=== PATIENT | female | born 1965 | race Caucasian/White ===

== ENCOUNTER 2018-11-01 11:17 | Emergency (ER) | payer OTHER ==
[2018-11-01 11:46] VITALS: BP 113/53
--- NOTE | 2018-11-01 12:06 | ED Physician Documentation ---
General Adult - HISTORIAN Historian: patient - HPI Stated Complaint: right thumb pain Chief Complaint: General Adult Onset: days ago Timing: worse since Severity: moderate Further Comments: yes (Pt is a 53 yo female with R thumb pain that has been worsening over the past 3 days. Pt has had no acute injury. Pt feels pain at the base of the thumb and at the proximal metacarpal/carpal joint. Pt is unable to take NSAIDS.) - ROS CONST: no problems EYES/ENT: none CVS/RESP: none GI/: none MS/SKIN/LYMPH: other (R thumb pain) - PAST HX Past History: other (anxiety/depression) Surgeries/Procedures: Allergies/Adverse Reactions: Allergies Allergy/AdvReac Type Severity Reaction Status Date / Time Iodinated Contrast- Oral and Allergy Verified 11/01/18 11:38 IV Dye general anesthia Allergy Unknown Uncoded 11/01/18 11:38 Home Medications: Ambulatory Orders Medication Instructions Recorded Bupropion HCl [Wellbutrin Xl] 450 mg PO DAILY 08/21/18 Duloxetine HCl 90 mg PO DAILY 08/21/18 Furosemide [Lasix] 20 mg PO DAILY 08/21/18 Hydrochlorothiazide 25 mg PO DAILY 08/21/18 Loratadine 10 mg PO DAILY 08/21/18 Lurasidone HCl [Latuda] 60 mg PO DAILY 08/21/18 Tiotropium Br/Olodaterol HCl 1 puff IH DAILY 08/21/18 [Stiolto Respimat Inhal Tina] lamoTRIgine [Lamictal] 350 mg PO DAILY 08/21/18 Trazodone HCl 50 mg PO HS 11/01/18 busPIRone HCL [Buspar] 15 mg PO QID 11/01/18 - SOCIAL HX Smoking History: cigarettes - FAMILY HX Family History: No - VITAL SIGNS Vital Signs: Vital Signs Temp Pulse Resp BP Pulse Ox 98.2 F 71 16 113/53 96 11/01/18 11:20 11/01/18 11:20 11/01/18 11:20 11/01/18 11:20 11/01/18 11:20 - REVIEWED ASSESSMENTS Nursing Assessment Reviewed: Yes Vitals Reviewed: Yes Progress - Progress Progress: X-ray R thumb: No signs of acute fracture or dislocations are identified. Degenerate changes at the metacarpophalangeal joint and the 1st carpometacarpal joint is noted. No other signs of fracture or dislocation is seen. Impression: Degenerative changes. Rx Prednisone 50 mg po qd x 5 days. Rx Keflex 500 mg tid x 7 days. f/u pcp ED Results Lab/Radiology - Orders Orders: ED Orders Category Date Time Status XRAY THUMB [FINGER 2 VIEWS OR MORE] [RAD] Stat Exams 11/01/18 Ordered General Adult Physical Exam - PHYSICAL EXAM GENERAL APPEARANCE: mild distress NECK: normal inspection, supple RESPIRATORY: no resp distress, chest non-tender CVS: reg rate & rhythm, heart sounds normal BACK: normal inspection SKIN: other (mild erythema, distal R thumb) EXTREMITIES: other (R thumb tenderness at proximal and distal metacarpal joints. Inhibited ROM, 2nd pain/soreness; faint erythema, distal R thumb.) NEURO: oriented X3, motor nml, sensation nml Discharge Clincal Impression: R thumb pain Referrals: Rosanna Urias MD [Primary Care Provider] - Condition: Stable Disposition: 01 HOME, SELF-CARE Decision to Admit: NO Decision Time: 12:30
--- NOTE | 2018-11-01 12:42 | Diagnostic Imaging Report ---
MARY KATE FREITAS [facility] [address] [facility] [address] [place], [place]. [address] Report Submission Date: Nov 01, 2018 12:03:02 PM CDT Patient Study Name: DELLA KATZ Date: Nov 01, 2018 11:38:02 AM CDT Modality Type: DX Gender: F Description: FINGER 2 VIEWS OR MORE : 65 Institution: [facility] Physician: MARY KATE FREITAS Exam: Right thumb. History: Pain. Multiple views of the right thumb are submitted. No signs of acute fracture or dislocations are identified. Degenerate changes at the metacarpophalangeal joint and the 1st carpometacarpal joint is noted. No other signs of fracture or dislocation is seen. Impression: Degenerative changes. Electronically signed on Nov 01, 2018 12:03:02 PM CDT by: Danial VASQUEZ
== END 2018-11-01 12:27 | disposition home or self-care (01) ==
LOC: ED 11:17
DX: M79.644 Pain in right finger(s) (principal)
CPT/HCPCS: 73140